=== PATIENT | female | born 1950 ===

== ENCOUNTER → 2018-05-06 | Outpatient (REF) | LOC: ZLAB.WCH 11:07 | DX: Z01.89 Encounter for other specified special examinations (principal) ==

== ENCOUNTER 2020-12-08 23:10 | Inpatient (IN) | payer MEDICARE, BC ==
[~2020-12-08] VITALS: Ht 162.6 cm; Wt 58.7 kg
--- NOTE | 2020-12-09 01:22 | NUR ---
PATIENT RECEIVED IN THE SOTO ON A WHEELCHAIR ON RA.REPORTS OF ABD PAIN.AOX4.ORIENTED IN THE ROOM.NO OTHER NEEDS AT THIS TIME.
[2020-12-09 03:09] VITALS: BP 132/69; PULSE 83; TEMP 97.5
--- NOTE | 2020-12-09 03:41 | NUR ---
PATIENT DOES NOT HAVE ANY HOME MEDS.
[2020-12-09 04:02] VITALS: BP 102/50; PULSE 84; TEMP 97.5
[2020-12-09 06:00] LABS: BASO % 0.5 % (0.0-2.0); EOS % 0.5 % (0-4.0); GRAN # 2.3 (1.4-6.5); GRAN % 59.7 % (42.2-75.2); HEMOGLOBIN 10.3 g/dl (12.5-16.0); LYMPH # 0.8 (1.2-3.4); LYMPH % 20.2 % (20.0-51.0); MEAN CELL VOLUME 110 fl (80.0-100.0); MEAN CORPUSCULAR HEMOGLOBIN 38 pg (27.0-31.0); MEAN CORPUSCULAR HGB CONC 35 g/dl (33.0-37.0); MEAN PLATELET VOLUME 8.9 fl (7.4-10.4); MONO # 0.7 (0.1-0.6); MONO % 18.8 % (1.7-9.3); PLATELET COUNT 131 K/mm3 (130-400); RED BLOOD COUNT 2.68 M/mm3 (4.10-5.30); REDCELL DISTRIBUTION WIDTH-CV 15.3 % (11.5-14.5)
[2020-12-09 06:15] LABS: CALCIUM 7.7 mg/dL (8.4-10.2); CREATININE, serum 0.52 (0.52-1.25); POTASSIUM 3.8 mmol/L (3.4-5.0)
--- NOTE | 2020-12-09 06:21 | NUR ---
PATIENT IS CALM IN THE ROOM.DENIES N/V AND PAIN.FOR PARACENTESIS TODAY.
[2020-12-09 06:24] LABS: HEMATOCRIT 29.4 % (37.0-47.0)
[2020-12-09 07:39] VITALS: BP 112/61; PULSE 82; TEMP 97.5
--- NOTE | 2020-12-09 08:15 | NUR ---
Pt awake and alert upon entry, no C/O pain at this time, has lack of appetite R/T abdominal distension, abdomen distented and firm, bowel sounds audible. shift assessments complete, left Pt in bed, lowest position, call light in reach.
[2020-12-09 10:59] LABS: PERITONEAL -POLYMORPHONUCLEAR 23.1 % (0-25); PERITONEAL FLUID RBC 0 /mm3 (0-0)
[2020-12-09 11:30] VITALS: BP 109/51; PULSE 71; TEMP 97.5
--- NOTE | 2020-12-09 14:43 | NUR ---
First visit from the wharf hand. No needs right now.
--- NOTE | 2020-12-09 14:49 | NUR ---
RAYMUNDO met with the patient and her , Curly (ph#[phone]), to discuss discharge plan. The patient lives in [place] with her . She reports independence with ADLs and has a cane. The patient's PCP is Dr. Dasha Adams and she receives her medications from [facility]. She reports no difficulties obtaining her meds. The patient does not have a DPOA-HC and she was not interested in completing one at this time. The patient plans to return home with her upon discharge. RAYMUNDO addressed the patient's alcohol use. She states that she has been drinking 6-8 beers daily for awhile now. RAYMUNDO discussed inpatient and outpatient alcohol treatment options. The patient reports that she has been to inpatient treatment in the past, but unsure what she would want at this time. She states that she may be interested in outpatient treatment and was interested in a list of the different outpatient treatment options. RAYMUNDO provided the patient with a list of the different outpatient treatment options in and around [place]. SW to follow as needed. *Discharge plan: home with *
[2020-12-09 15:37] VITALS: BP 106/55; PULSE 84; TEMP 97.7
--- NOTE | 2020-12-09 17:47 | NUR ---
Pt resting in the room, was off the floor this morning for a paracentisis, 9.4 liters removed from Pt. has had no C/O pain throughout the day. VS have remained stable.
[2020-12-09 19:47] VITALS: BP 103/53; PULSE 81; TEMP 97.3
--- NOTE | 2020-12-09 20:00 | NUR ---
Assessment complete. Patient is awake in bed, alert and oriented with no complaints of pain. LLQ paracentesis site is covered with bandaid with no signs of bleeding; Abdomen is currently nondistended and soft with bowel sounds audible in all quadrants. Patient does not complain of abdominal pain with palpation. Heart sounds are normal/regular and lung sounds are clear. Bilateral ankle/feet edema is noted with 1+ pitting; patient states this sometimes happens at home. Albumin currently infusing into right forearm IV. Call light in reach.
[2020-12-10 00:03] VITALS: BP 121/64; PULSE 89; TEMP 98.3
[2020-12-10 04:15] VITALS: BP 120/54; PULSE 86; TEMP 97.5
[2020-12-10 06:28] LABS: MEAN CELL VOLUME 112 fl (80.0-100.0); MEAN CORPUSCULAR HGB CONC 34 g/dl (33.0-37.0); PLATELET COUNT 132 K/mm3 (130-400); RED BLOOD COUNT 2.53 M/mm3 (4.10-5.30); REDCELL DISTRIBUTION WIDTH-CV 15.1 % (11.5-14.5)
[2020-12-10 06:34] LABS: ALBUMIN 2.4 gm/dL (3.5-5.0); BILIRUBIN,DIRECT 0.3 mg/dL (0.0-0.4); BILIRUBIN,TOTAL 0.9 mg/dL (0.0-1.0); CALCIUM 7.9 mg/dL (8.4-10.2); CREATININE, serum 0.63 (0.52-1.25); POTASSIUM 3.3 mmol/L (3.4-5.0); TOTAL PROTEIN 5.4 gm/dL (6.4-8.2)
[2020-12-10 06:35] LABS: INR 1.6 (0.8-3.0); PROTHROMBIN TIME 17.9 SECONDS (9.7-12.8)
[2020-12-10 06:36] LABS: HEMATOCRIT 28.3 % (37.0-47.0); HEMOGLOBIN 9.7 g/dl (12.5-16.0); MEAN CORPUSCULAR HEMOGLOBIN 38 pg (27.0-31.0)
[2020-12-10 06:38] LABS: IRON,SERUM 30 ug/dL (35-150)
[2020-12-10 06:47] LABS: TOTAL IRON BINDING CAPACITY 106 ug/dL (265-497)
[2020-12-10 07:45] LABS: BAND 1 % (0-10); BASOPHIL 1 % (0-2); EOSINOPHIL 1 % (0-4); LYMPHOCYTE 43 % (20.0-51.0); NEUTROPHILS 45 % (42.0-75.2)
[2020-12-10 07:55] VITALS: BP 125/59; PULSE 81; TEMP 97.7
[2020-12-10 07:55] LABS: PLATELET ESTIMATE NORMAL (NORMAL)
--- NOTE | 2020-12-10 08:17 | NUR ---
Pt sleeping upon entry, easily awakened. No C/O pain at this time. Shift assessments complete.
[2020-12-10 12:07] VITALS: BP 111/53; PULSE 83; TEMP 97.6
[2020-12-10 15:43] VITALS: BP 134/67; PULSE 93; TEMP 97.7
--- NOTE | 2020-12-10 20:00 | NUR ---
Assessment complete. Patient is alert and oriented with no complaints of pain. She ambulates independently in room. LLQ paracentesis site is covered with bandaid and is CDI. Dr. Cheek has been contacted to speak with patient over phone to inform her of the gastric emptying study occuring tomorrow morning. Patient has no additional questions. Comfort measures provided. Call light in reach.
[2020-12-10 21:01] VITALS: BP 103/67; PULSE 92; TEMP 97.8
[2020-12-11 04:55] VITALS: BP 117/58; PULSE 78; TEMP 97.8
[2020-12-11 06:48] LABS: ALBUMIN 2.3 gm/dL (3.5-5.0); BILIRUBIN,TOTAL 0.6 mg/dL (0.0-1.0); CALCIUM 7.9 mg/dL (8.4-10.2); CREATININE, serum 0.64 (0.52-1.25); POTASSIUM 3.5 mmol/L (3.4-5.0)
[2020-12-11 06:49] LABS: GRAN # 1.2 (1.4-6.5); GRAN % 39.9 % (42.2-75.2); LYMPH # 1.3 (1.2-3.4); MEAN CELL VOLUME 113 fl (80.0-100.0); MEAN CORPUSCULAR HGB CONC 35 g/dl (33.0-37.0); MEAN PLATELET VOLUME 9.1 fl (7.4-10.4); MONO # 0.5 (0.1-0.6); MONO % 16.8 % (1.7-9.3); PLATELET COUNT 141 K/mm3 (130-400); RED BLOOD COUNT 2.42 M/mm3 (4.10-5.30); REDCELL DISTRIBUTION WIDTH-CV 15.4 % (11.5-14.5)
[2020-12-11 06:55] LABS: HEMATOCRIT 27.3 % (37.0-47.0); HEMOGLOBIN 9.5 g/dl (12.5-16.0); MEAN CORPUSCULAR HEMOGLOBIN 39 pg (27.0-31.0)
[2020-12-11 10:57] LABS: ANA SCREEN with REFLEX Negative (Negative)
[2020-12-11] MEDS ORDERED: LEVAQUIN 2250 MG/TAB PO (11:10)
[2020-12-11] MEDS ORDERED: LASIX 40MG TABL40 MG PO (11:11)
[2020-12-11] MEDS ORDERED: ALDACTONE50 MG PO (11:11)
[2020-12-11] MEDS ORDERED: CENTRUM CHEWAB1 EAC3 PO (11:12)
[2020-12-11] MEDS ORDERED: FOLIC ACID 11 MG/TA1 PO (11:12)
[2020-12-11] MEDS ORDERED: PEPCID 20MG TAB20 MG PO (11:12)
[2020-12-11] MEDS ORDERED: THIAMINE 1100 MG/TAB PO (11:12)
--- NOTE | 2020-12-11 11:43 | NUR ---
Pt retured from radiology, morning medications given. No C/O pain at this time. Shift assessments complete, left Pt resting in room, call light in reach.
[2020-12-11 11:46] VITALS: BP 136/69; PULSE 81; TEMP 97.8
--- NOTE | 2020-12-11 14:20 | NUR ---
Pt discharged to home, discussed discharge packet with Pt, answered questions. Pt escorted to entrance by PCT, Pt left with spouse via private transportation.
[2020-12-13 11:13] LABS: ANTISMOOTH MUSCLE ANTIBODY Negative (Negative)
== END 2020-12-11 14:20 | disposition home or self-care (01) | DRG 433 ==
LOC: MEDICAL 23:10
PROVIDERS: Internal Medicine Gastroenterology; Physician Assistant; Student in an Organized Health Care Education/Training Program; ADMIT Hospitalist
PROC: 0W9G3ZZ Drainage of Peritoneal Cavity, Percutaneous Approach (ICD-10-PCS; principal; 2020-12-09)
DX: K70.31 Alcoholic cirrhosis of liver with ascites (principal); E87.1 Hypo-osmolality and hyponatremia; E87.6 Hypokalemia; D25.9 Leiomyoma of uterus, unspecified; E83.42 Hypomagnesemia; F10.10 Alcohol abuse, uncomplicated; K57.30 Diverticulosis of large intestine without perforation or abscess without bleeding; R63.0 Anorexia
CPT/HCPCS: 99222-AI; 99232-AI; 99239; A9541; J0696; J2704; J3430; J3475; J7120; P9047